=== PATIENT | female | born 1995 | race Asian ===

== ENCOUNTER 2018-12-18 20:39 | Emergency (ER) | payer BC ==
[~2018-12-18] VITALS: Ht 154.9 cm; Wt 60.0 kg
[2018-12-18 20:54] VITALS: BP 115/73
[2018-12-18] MEDS ORDERED: FAMOTIDINE 20 MG TABLET PO ONE (21:00)
[2018-12-18] MEDS ORDERED: depo-provera (21:03)
[2018-12-18] MEDS ORDERED: FAMOTIDINE 20 MG TABLET ONE (21:08)
== END 2018-12-18 22:04 | disposition home or self-care (01) ==
LOC: ED 22:00
DX: T78.1XXA Other adverse food reactions, not elsewhere classified, initial encounter (principal); X58.XXXA Exposure to other specified factors, initial encounter; L50.0 Allergic urticaria
CPT/HCPCS: 99283; J7512